=== PATIENT | male | born 1975 | race Caucasian/White ===

== ENCOUNTER 2020-12-11 10:13 | Emergency (ER) | payer MEDICAID, SELFPAY ==
--- NOTE | 2020-12-11 10:15 | ED.GENADUL_ITS ---
Discharge Plan Disposition Patient Disposition: HOME Condition: Fair Discharge Details Clinical Impression: Inguinal hernia, UTI (urinary tract infection), Elevated blood pressure reading Primary Care Provider: None,None ED Provider: Ira Mccarthy Home Meds and New Rx's Prescriptions: New cephalexin [Keflex] 500 mg capsule 500 mg PO QID 5 Days Qty: 20 RF: 0 Continued omeprazole magnesium [Prilosec OTC] 20 mg Tablet,Delayed Release (Dr/Ec) 20 mg PO DAILY RF: 0 Discharge Instructions Instructions: Urinary Tract Infection in Men (ED), Inguinal Hernia (ED) Additional Instructions: Please increase your water intake. You may use Tylenol and/or ibuprofen as needed for discomfort. Your imaging did show a left inguinal hernia but it does not appear to have emergent pathology as we discussed. However, please return if you develop worsening pain, persistent pain, hardening of that area or change in the skin color. I have referred you to general surgery. Please call to schedule appointment, number listed below. Your blood pressure is elevated. Please follow-up with primary care. I have asked care management to help arrange for primary care follow-up. You may continue to check this when at home and discuss these findings with your primary care. As discussed, there is concern that you may have a urinary tract infection as well. Please take the antibiotics as prescribed. Even if symptoms improve, please take the entire course. If you develop fever/chills, increased pain, inability stay hydrated or other new/worsening symptom please seek care urgently once again. Referrals: Laurita Vazquez DO [OSTEOPATHIC DOCTOR] - Discharge Data Discharge Date/Time-TO BE ENTERED AT DEPARTURE: 12/11/20 12:57 Medical Decision Making Patient is a pleasant 45-year-old gentleman presenting today with chief complaint of left-sided flank pain that can radiate into his left testicle. He states the pain began approximate 4 days ago. He states that since then he has been having intermittent left sided pain that can radiate into his pelvis and left testicle. He states that his pain is currently minimal at a 2/10 and describes it as a pressure. Pain can increase to 8/10 and states that this is often when he is exerting himself. States that his appetite has been low, ate toast yesterday. Denies nausea or vomiting. Reports decreased BM, associates with less food intake but does not feel constipated. States that this morning he bagan having some pressure with urination as well. No hematuria. Denies fevers/chills. No previous abdominal surgeries, has not experienced pain like this historically. 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 On exam, patient appears comfortable and nontoxic. He has no CVA tenderness. No abdominal tenderness. Testicular exam is normal with no swelling, mass, erythema or tenderness. Patient's history has me concerned for nephrolithiasis. Also considered intraabdominal source such as diverticulitis. His exam and history is not consistent with testicular torsion. He has no risk factors for STI and no penile discharge or penile pain. Also considered potential hernia, particularly as pain is worse with exertion and heavy lifting. I do not see evidence of incarcerated hernia. Labs reviewed. Potassium is slightly low, otherwise without signifciant abnoramlity. Radiologist contacted the department. He notes left inguinal hernia. No bowel involved. No evidence of incarceration. No hydronephrosis. No nephrolithiasis. UA has returned and is questionable. Patient has moderate bacteria but negative leukocyte esterase and nitrates. Discussed these findings with the patient. He and I discussed risks/benefits of abx for potential UTI. He has started to have some urinary discomfort. Will cover with abx. I advised that he will need to f/u with PCP regarding UTI. He states that he drinks minmal water, this could be contributing to his symptoms today. I have referred him to general surgery to discuss hernia further. Strict return precautions were discussed, all of his questions and concerns were addressed. He is in agreement with this plan. [facility] General Mode of arrival: ambulatory . Date/Time Provider Initiated Documentation: 12/11/20 10:14 . Limitations to Documentation: no limitations . Information obtained by: patient and RN notes reviewed . History of Present Illness 45 year old M presents to the emergency department with the chief comp laint of left flank pain radiating into pelvis and left testicle, described as mild, with intensity rated at 2. Quality is described as aching, and is localized to the back. Patient abdomen and reports radiation to (left testicle). Patient started experiencing this day(s) and it has been intermittent. other things that improve symptom(s), (states he is sleeping well, uninterupted) Other factors that worsen symptoms . Patient notes loss of appetite; denies chest pain, cough, fever/chills, nausea/vomiting and shortness of breath. Patient did receive the following treatments prior to arrival, none Related Data Home Medications Medication Instructions Recorded Confirmed cephalexin [Keflex] 500 mg PO QID 5 Days #20 cap 12/11/20 omeprazole magnesium [Prilosec OTC] 20 mg PO DAILY 12/11/20 12/11/20 Previous Rx's Medication Instructions Recorded cephalexin [Keflex] 500 mg PO QID 5 Days #20 cap 12/11/20 Allergies Allergy/AdvReac Type Severity Reaction Status Date / Time No Known Allergies Allergy Unverified 12/11/20 10:21 Review of Systems Constitutional Constitutional: Reports as per HPI, Denies chills, Denies fatigue, Denies fever(s) and Denies headache(s) ENT Ears, Nose, Mouth, and Throat: Denies headache(s) Cardiovascular Cardiovascular: Reports as per HPI, Denies chest pain and Denies dyspnea Respiratory Respiratory: Reports as per HPI, Denies cough and Denies dyspnea Gastrointestinal Gastrointestinal: Reports as per HPI Genitourinary Genitourinary: Denies difficulty urinating, Reports dysuria (reports pressure with urination this AM), Reports flank pain, Denies scrotal swelling, Denies testicular mass, Reports testicular pain (pain from left side intermittently radiates into left testicle), Denies urinary incontinence and Denies urinary urgency Musculoskeletal Musculoskeletal: Reports as per HPI and Reports back pain Integumentary/Breasts Skin/Breast: Reports as per HPI and Denies rash Neurologic Neurologic: Reports as per HPI and Denies headache(s) Endocrine Endocrine: Denies fatigue [facility] Medical History No active medical problems Surgical History No history of previous surgery Social History Smoking/Tobacco Use Status: Former Tobacco Use Smoking risk assessment performed?: Yes Alcohol Intake: never Drug use: Rarely Substance use type: marijuana Do you feel safe at home: Yes Do you feel safe in your relationship?: Yes Exam Const General: cooperative, healthy appearing, comfortable, no acute distress and well developed Nutritional Appearance: well nourished and overweight Orientation: alert and awake [facility] Head: normal to inspection Mouth: moist mucous membranes Resp Effort & Inspection: normal respiratory effort, able to speak in complete sentences and no respiratory distress Auscultation: clear to auscultation bilaterally, no rales, no rhonchi and no wheezes Cardio Rate: regular rate Rhythm: regular rhythm Heart Sounds: S1 normal and S2 normal GI Inspection: normal to inspection Palpation: soft, no hepatosplenomegaly, not firm, no guarding, no hernias, no masses, no pulsatile masses, nontender and No ascites Percussion: normal to percussion Auscultation: hypoactive bowel sounds Male General Exam: Yes normal external exam, No ecchymosis, No hernia, No inguinal lymphadenopathy, No lesions and No tenderness Penis: normal penis Meatus: meatus normal Scrotum: scrotum normal Testes: normal, no epidiymal tenderness, no testicular mass, no testicular swelling and no testicular tenderness Back/Spine/Pelvis Back: no CVA tenderness Skin General skin exam: no rashes or lesions noted Trauma: no lacerations or abrasions Neuro General: patient alert and patient awake Cognition: normal cognition Speech: speech normal Gait: normal gait Psych Appearance: grossly normal and well kempt Mental Status: mental status grossly normal Speech and Movement: speech and movement normal
[2020-12-11 10:18] VITALS: BP 181/119; PULSE 94; RESP 20; TEMP 36.5; O2SAT 98
[2020-12-11] MEDS: Normal Saline Flush 10 ML SYR IVP (10:37)
[2020-12-11] MEDS: Lactated Ringers 1,000 ML 1000 ML IV (10:42)
--- NOTE | 2020-12-11 10:45 | DI.CT_ITS ---
EXAM: CT RENAL COLIC WO CLINICAL HISTORY: left sided flank pain going into left testicle. TECHNIQUE: Imaging Protocol: Axial computed tomography images with coronal and sagittal reformatted images were created and reviewed CONTRAST MATERIAL: Intravenous: none Oral: None COMPARISON: No exams were available for comparison FINDINGS: VISUALIZED LUNG BASES: No nodules nor pleural effusions evident. ABDOMEN: There is no ascites. LIVER: There are no obvious focal hepatic lesions evident of this noninfused study. GALLBLADDER/BILIARY: No obvious gallbladder pathology. CBD is not dilated. PANCREAS: No evidence of pancreatic mass nor dilatation of the pancreatic duct. SPLEEN: Spleen is not enlarged. No obvious intrasplenic lesions. ADRENALS: There are no significant adrenal masses. KIDNEYS:No cysts evident. No solid renal masses. No calculi nor hydronephrosis. . ABDOMINAL AORTA: Abdominal aorta is not enlarged and there is no kchvfseexbwpzmi-vbfc-[id number] adenopat hy. ABDOMINAL WALL/GI: No evidence of significant anterior abdominal wall hernia. However, there is a fa t containing left inguinal hernia. No bowel obstruction. PELVIS: LYMPH NODES: There is no intrapelvic nor inguinal adenopathy. GI: No evidence of appendicitis.No evidence of sigmoid diverticulitis. URINARY BLADDER: No calculi nor obvious masses evident REPRODUCTIVE: The prostate gland size is upper normal. Some calcification is evident in the central right side of the prostate. OSSEOUS: No significant osseous lesions. IMPRESSION: 1. No evidence of nephrolithiasis nor obstruction of the urinary tracts. Also no evidence of calculu s in the nondistended urinary bladder. 2. No evidence of acute inflammatory process in the abdomen and pelvis. 3. There is a fat containing left inguinal hernia. No bowel obstruction. RADIATION DOSE DELIVERED: 1,273.43mGy.cm Total DLP DATA REPOSITORY: All CT scans at this facility are submitted to the National Radiology Data Registry (NRDR) Dose Index Registry (DIR) with the [employer] (ACR). RADIATION OPTIMIZATION: All CT scans at this facility use at least one of these dose optimization te chniques: automated exposure control; mA and/or kV adjustment per patient size (includes targeted exa ms where dose is matched to clinical indication); or iterative reconstruction.
[2020-12-11 10:46] LABS: Abs Immature Grans 0.02 10^3/uL (0.0-0.06); Absolute Basophil Count 0.04 10^3/uL (0.0-0.2); Absolute Eosinophil Count 0.15 10^3/uL (0.0-0.7); Absolute Lymphocyte Count 1.71 10^3/uL (1.2-3.4); Absolute Monocyte Count 0.71 10^3/uL (0.1-0.8); Absolute Neutrophil Count 5.91 10^3/uL (1.2-6.7); Basophils % 0.5; Eosinophils % 1.8; HCT 49.4 % (40.0-50.0); HGB 16.9 g/dL (13.5-17.5); Immature Grans % 0.2; MCH 28.6 pg (27.0-33.0); MCHC 34.2 % (32.0-36.0); MCV 83.6 fL (80-95); MPV 9.7 fL (8.0-11.0); Monocytes % 8.3; Neutrophils % 69.2; Nucleated RBC 0 %; Platelet Count 321 10^3/uL (130-400); RBC 5.91 10^6/uL (4.36-5.78); RDW 11.9 % (11.8-14.1); RDW-SD 36.1 fL; WBC 8.54 10^3/uL (4.4-10.8)
[2020-12-11 10:59] LABS: ALT 28 U/L (16-63); AST 19 U/L (15-37); Albumin 3.9 g/dL (3.4-5.0); Alkaline Phosphatase 92 U/L (46-116); Anion Gap 7.6 mmol/L (3-11); BUN 14 mg/dL (7-18); Bilirubin, Total 0.6 mg/dL (0.2-1.0); CO2 26.4 mmol/L (21.0-32.0); CREATININE 1.1 mg/dL (0.70-1.30); Calcium 9.2 mg/dL (8.5-10.1); Chloride 104 mmol/L (98-107); Glucose 117 mg/dL (74-106); Potassium 3.3 mmol/L (3.5-5.1); Sodium 138 mmol/L (136-145); Total Protein 8.2 g/dL (6.4-8.2)
[2020-12-11 11:30] LABS: Lipase 150 U/L (73-393)
[2020-12-11 12:01] VITALS: BP 164/88; PULSE 59; RESP 16; TEMP 36.8; O2SAT 100
[2020-12-11 12:13] LABS: Bilirubin Small (Negative); Blood Moderate (Negative); Clarity Sl Cloudy (Clear); Glucose Negative (Negative); Ketones 40 mg/dL (Negative); Leukocyte Esterase Negative (Negative); Nitrite Negative (Negative); Specific Gravity >= 1.030 (1.005-1.025); Urobilinogen 0.2 EU/dL (Up TO 0.2); pH 5.5 (5-8)
[2020-12-11 12:28] LABS: Bacteria Moderate HPF (Negative); Epithelial Cells Rare HPF (Negative); WBC 0-2 HPF (0-5)
[2020-12-11 12:29] LABS: C & S Indicated? Yes; Casts 3-5 Fine Granular LPF (Negative); Mucus Moderate (Negative)
[2020-12-11 12:30] LABS: Crystals Negative HPF (Negative)
--- NOTE | 2020-12-11 12:59 | NUR.NOTE ---
Referral [facility] to [facility]. Copy of referral to Care Management to establish pcp.Nursing Note:
== END 2020-12-11 12:57 | disposition home or self-care (01) ==
PROVIDERS: Emergency Provider Physician Assistant
DX: N39.0 Urinary tract infection, site not specified (principal); K40.90 Unilateral inguinal hernia, without obstruction or gangrene, not specified as recurrent
CPT/HCPCS: 36415; 80053; 83690; 96360; 99284; 74176; 81003; 81015; 85025; 87086; J3490

== ENCOUNTER 2020-12-28 15:09 | Outpatient (REF) | payer MEDICAID, SELFPAY ==
[2020-12-28 10:42] LABS: Bilirubin Negative (Negative); Blood Trace-intact (Negative); Clarity Clear (Clear); Glucose Negative (Negative); Ketones Negative (Negative); Leukocyte Esterase Negative (Negative); Nitrite Negative (Negative); Specific Gravity >= 1.030 (1.005-1.025); Urobilinogen 0.2 EU/dL (Up TO 0.2); pH 5.5 (5-8)
[2020-12-28 10:57] LABS: Bacteria Negative HPF (Negative); C & S Indicated? No; Casts Negative LPF (Negative); Crystals Negative HPF (Negative); Epithelial Cells Rare HPF (Negative); Mucus Moderate (Negative); RBC 0-2 HPF (0-2); WBC 0-2 HPF (0-5)
== END 2020-12-28 15:10 | disposition home or self-care (01) ==
LOC: NCHCN 15:09
PROVIDERS: Visit Provider Surgery
DX: R31.9 Hematuria, unspecified (principal); Z87.891 Personal history of nicotine dependence
CPT/HCPCS: 81003; 81015

== ENCOUNTER 2021-01-07 03:30 | Outpatient (CLI) | payer MEDICAID, SELFPAY ==
[2021-01-07 13:33] LABS: Hemoglobin A1C 5.6 % (<5.7)
[2021-01-07 14:22] LABS: Calculated LDL 122 mg/dL (<100); Cholesterol 199 mg/dL (<200); HDL Cholesterol 62 mg/dL (40-60); TSH (W/Ref FT4) 0.67 uIU/mL (0.36-3.74); Triglyceride 76 mg/dL (<150)
[2021-01-07 22:03] LABS: PSA, Screening 1.7 ng/mL (0.0-2.5)
== END 2021-01-07 03:31 | disposition home or self-care (01) ==
LOC: LBO 03:30
PROVIDERS: PCP Nurse Practitioner Family; Visit Provider Nurse Practitioner Family
DX: Z13.1 Encounter for screening for diabetes mellitus (principal); Z13.220 Encounter for screening for lipoid disorders; Z13.29 Encounter for screening for other suspected endocrine disorder; Z12.5 Encounter for screening for malignant neoplasm of prostate
CPT/HCPCS: 36415; 80061; 84153; 83036; 84443

== ENCOUNTER 2021-01-29 02:01 | Outpatient (CLI) | payer MEDICAID, SELFPAY ==
[2021-01-30 01:19] LABS: COVID-19 RT-PCR UVMMC Result Negative (Negative)
== END 2021-01-29 02:02 | disposition home or self-care (01) ==
PROVIDERS: PCP Nurse Practitioner Family; Visit Provider Surgery
DX: Z20.822 Contact with and (suspected) exposure to COVID-19 (principal); Z01.818 Encounter for other preprocedural examination
CPT/HCPCS: U0003

== ENCOUNTER 2021-02-02 06:19 | Day surgery (SDC) | payer MEDICAID, SELFPAY ==
--- NOTE | 2021-02-01 21:07 | W.PM.HP.N ---
Date of service: 02/02/21 Time of Service: 07:15 Assessment and Plan Assessment and plan (1) Left inguinal hernia: Status: Acute Assessment and plan: Risks of the surgery include but are not limited to: Bleeding/infection/pneumonia/damage to blood vessels or bladder or bowels/blood clots or PE/chronic pain/urinary retention/chronic numbness/reoccurrence/reaction to mesh requiring removal/damage to testicle or sterility/complications of anesthesia. The pt will have a pre-Op PE prior to surgery. Patient does need to get his blood pressure under control prior to any surgical intervention. We discussed the risks of congestive heart failure, IN, stroke, with chronic elevated blood pressure. As well as chronic kidney disease. The procedure will be done with abx and under sterile conditions. Patient understands he will have an implant. The pt requires a ride home from surgery and someone to stay with the pt for 24 hrs after anesthesia. No lifting over 5 pounds for 2 weeks after surgery History of Present Illness Consults Consult date: 02/02/21 - Narrative: : -started on lisinopril. Reviewed UA still has blood and protein in his urine. If not improved in 1 months time- should see nephro still having some mild pain w/ activity. Otherwise no changes in meds or health status. left sie marked. stabel for procedure today Pt. is seen in consultation by JOSE ARMANDO Tobin from ED Symptoms have been started approximately December 06. 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 There is not a specific incident where he started having pain. Patient says actually he has been feeling better since he went to the ER and got diagnosed. Patient denies any pain or difficulty with urination or straining to move his bowls. Pain is in the left groin, he describes it as a discomfort and burning. Lump {IS soft and reducible. reducible. Pt has not had any surgery through this area before. He has not had any surgery or anesthesia in the past. 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 He has never had surgery on the left side. When he does lifting or strenuous activity, It is uncomfortable. Denies problems moving his bowels. He no longer smokers-he only smoked for a few years in his 20s. He has never had anesthesia before. He does not see a doctor. He did not admit to any urinary tract type history other than the pain in the left groin. No hesitancy or decreased stream. No history of chronic pain in the prostatitis or STD's. Family: heart problems- mother but 85, and only started recently. Prostatic health occasions +DM in his brothers. Prostate calcifications are pretty common and do not need to be treated. We do not recommend a hematuria work-up unless somebody has greater than 3-5 red cells per high-powered field. It looks like his initial UA had mucus and casts and epithelial cells and all kinds of crud, so I would write it off more as a contaminant than anything else. -per Urology team Review of Systems All systems reviewed & are unremarkable except as noted in HPI and below PFSH Medical History History of gastroesophageal reflux (GERD) Hypertension Surgical History No history of previous surgery Family History (Updated 01/01/21 @ 12:44 by Arabella Almaraz) Mother No problems noted. Father , age 70 No problems noted. Sister No problems noted. Sister No problems noted. Brother No problems noted. Brother No problems noted. Brother No problems noted. Son No problems noted. Paternal Grandfather , 84 No problems noted. Maternal Grandmother , age 86 No problems noted. Paternal Grandmother , age 33 No problems noted. Social History (Updated 01/01/21 @ 12:39 by Arabella Almaraz) Smoking/Tobacco Use Status: Former Tobacco Use tobacco type: cigarettes Quit Date: 11/13/09 Second Hand Exposure: No Smoking risk assessment performed?: Yes Alcohol Intake: current Alcohol Intake frequency: a few times a week Alcohol type: beer Drug use: Rarely Substance use type: marijuana Details: alcohol:t-3. marijuana: days, hit Caregiver/Support person: No Household members: significant other and family Housing: house Pets and animals: Yes Pets and animals: farm animals Sexually active: Yes Do you think of yourself as: straight/heterosexual Current gender identity: male What is your relationship status?: living with partner How often do you talk on the phone with friends or family?: once per week Do you belong to any clubs or organized social groups?: no Panel score (0-1 are the most socially isolated patients): 1 What type of physical activity do you participate in: none Nohelia/Moravian: No preference Special nohelia needs: No Seatbelt use: sometimes Helmet use: Yes Helmet use: sometimes Drive intox or ride w/intox sales 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 driver helper: No Do you feel safe at home: Yes Do you feel safe in your relationship?: Yes Meds Home Medications and Allergies Allergies Allergy/AdvReac Type Severity Reaction Status Date / Time No Known Allergies Allergy Verified 02/02/21 06:29 Home Medications Medication Instructions Recorded Confirmed Type lisinopril 10 mg tablet 10 mg PO DAILY #90 tab 01/11/21 02/02/21 Rx omeprazole magnesium 20 mg 20 mg PO DAILY #90 tab 01/11/21 02/02/21 Rx tablet,delayed release Exam Resp Effort & Inspection: normal respiratory effort and able to speak in complete sentences Auscultation: clear to auscultation bilaterally Cardio Rate: regular rate Rhythm: regular rhythm GI Palpation: soft Auscultation: normal bowel sounds COVID-19 Screening Have you, or household traveled for leisure in last 14 days?: No Had IN PERSON contact w/suspected or confirmed C-19 person: No
[2021-02-02 06:33] VITALS: BP 141/79; PULSE 65; RESP 14; TEMP 36.1; O2SAT 97
[2021-02-02] MEDS: Acetaminophen 500 MG TAB 1000 MG PO (06:50)
[2021-02-02] MEDS: Gabapentin 300 MG CAP PO (06:50)
[2021-02-02] MEDS: Lactated Ringers 1,000 ML 80 ML IV (07:00)
[2021-02-02 07:06] LABS: Bilirubin Negative (Negative); Blood Small (Negative); Clarity Clear (Clear); Glucose Negative (Negative); Ketones Negative (Negative); Leukocyte Esterase Negative (Negative); Nitrite Negative (Negative); Specific Gravity >= 1.030 (1.005-1.025); Urobilinogen 0.2 EU/dL (Up TO 0.2); pH 5.5 (5-8)
[2021-02-02 07:14] LABS: Bacteria Rare HPF (Negative); C & S Indicated? No; Casts Negative LPF (Negative); Crystals Negative HPF (Negative); Epithelial Cells Rare HPF (Negative); Mucus Trace (Negative); WBC 0-2 HPF (0-5)
[2021-02-02] MEDS: Bupivacaine 0.25% Pres-Free 10 ML VIAL (07:45)
[2021-02-02] MEDS: ceFAZolin 2 GM/50 ML BAG IVPB (07:55)
--- NOTE | 2021-02-02 09:00 | PDOC.DSDIS_ITS ---
Discharge Plan Disposition Patient Disposition: HOME Condition: Good Discharge Details Reason For Visit: left inguinal hernia repair Attending Provider: Laurita Vazquez Primary Care Provider: Toy Wright Home Meds and New Rx's Prescriptions: New ibuprofen 600 mg tablet 600 mg PO Q6H PRNQty: 60 RF: 3 tramadol 50 mg tablet 50 mg PO Q4H PRNQty: 14 RF: 0 Continued omeprazole magnesium [Prilosec OTC] 20 mg tablet,delayed release (DR/EC) 20 mg PO DAILY Qty: 90 RF: 4 lisinopril 10 mg tablet 10 mg PO DAILY Qty: 90 RF: 4 Discharge Instructions Additional Instructions: Dr. Vazquez HERNIA REPAIR ? POSTOPERATIVE INSTRUCTIONS Patients who have this type of surgery can usually be expected to return to work within two weeks and have minimal amounts of discomfort. ? ACTIVITY: The day of surgery should be spent resting. However, you can be up for short periods of time, I.E., going to the bathroom or kitchen. Avoid lifting or straining. On the day following surgery, you can be up and about as desired. ? LIFTING: Restrict your lifting to no more than five (5) pounds for the first week following surgery. For the second week after surgery, don?t lift more than ten pounds. We will decide when you are done with restrictions and when you can return to work, at your follow-up appointment. No sexual activity for two weeks. ? DIET: There are no dietary restrictions following surgery. However, you may want to start with small amounts of liquids to avoid nausea the day of surgery. ? INCISION CARE: You will notice purple skin glue closing the incision. Do not peel this off- it will wear off on its own. After 24 hours you may shower. The dressing may be replaced for comfort, but is not necessary. An ice bag may be applied to the incision for 72 hours following surgery. ? SIGNS OF INFECTION: It is not unusual to have some black and blue discoloration of the skin around the incision, but also scrotum and penis. It will slowly disappear. If you have any increased redness, drainage, fever (above 100 degrees), please contact your doctor for an examination. ? DISCOMFORT: You may expect to have some mild discomfort at the incision sight. If severe pain develops you should contact your doctor for further instructions. ? URINATION: Patients who have surgery occasionally have problems urinating. If you experience problems and are not able to urinate within 6 hours following your surgery, please call your doctor immediately or go to your nearest [facility] Room for evaluation. ? DRIVING: NO driving for three (3) days after surgery, or if you are still taking narcotic pain medication. ? MEDICATIONS: Alternate Tylenol 1000mg by mouth every 8 hours and Ibuprofen 600mg every 6 hours. Make sure you take ibuprofen with food and not on an empty stomach. Take the Tylenol and ibuprofen continuously for the first 72hrs- not just when you have pain. Use the tramadol for breakthrough pain. Use ICE! Twenty minutes on, and then off, continuously for the first 72hours. If you are taking narcotic pain medication, follow the instructions on the label and do not drive. Pain medications can make you very constipated. Make sure you are moving your bowels daily. If not, take Miralax, milk of magnesia or magnesium citrate. Anesthesia makes you very constipated. Take a dose of milk of magnesia the morning after surgery. ? REPORT: Unusual swelling, severe pain, unresolved nausea, signs of infection, or difficulty in urination to your surgeon. Follow up in clinic with Dr. Vazquez in 2 weeks. [phone] Activity:: see above Remove Dressings/Wound Care:: 24 hours Shower/Bathe:: 24 hours Diet:: see above Discharge Orders Discharge Orders: Discharge Order (Routine); Ordered 02/02/21 Ordered By: Laurita Vazquez DS: Diagnosis Discharge Diagnosis (1) Left inguinal hernia: Status: Acute
[2021-02-02 09:08] VITALS: BP 146/76; PULSE 63; RESP 18; TEMP 36.5; O2SAT 97
[2021-02-02 09:13] VITALS: BP 152/82; PULSE 67; RESP 16; TEMP 36.5; O2SAT 98
--- NOTE | 2021-02-02 09:14 | ROE_ITS ---
Date of service: 02/02/21 Time of Service: 09:14 Operative Note Operative Note DATE OF PROCEDURE: 02/02/21 PRE-OP DIAGNOSIS: Left direct inguinal hernia. POST-OP DIAGNOSIS: same PROCEDURE: open left inguinal hernia w/ mesh SURGEON: Sana Hsu HIGH SCHOOL MUSIC TEACHER: Sherry Fong ANESTHESIA TYPE: General:No Airway and Primary Nerve Block Refer to Anesthesia Record ESTIMATED BLOOD LOSS: 5 PATHOLOGY: none sent COMPLICATIONS: None Patient was transported to: same day Patient's condition: stable Procedure Description: INDICATIONS: The pt is here today for surgery regarding symptomatic left inguinal hernia that has failed outpatient conservative medical management, and he is here today for repair. Informed consent was obtained, explaining risks and benefits of the procedure including but not limited to: bleeding, infection, pneumonia, blood clots, chronic pain, chronic numbness, damage to testicle resulting in removal, recurrence of hernia, reaction to Mesh necessitating removal, and other unforetold complications, and complications of anesthesia-which were addressed by the MANAGEMENT ANALYST. The patient is marked in preOp prior to the procedure DESCRIPTION OF PROCEDURE: The pt is then brought to the operative room suite. Anesthesia was administered per the Department of Anesthesia. The patient was prepped and draped in the usual sterile fashion using ChloraPrep scrub solution. Pause for the cause was done. He did receive preop IV antibiotics, and 30 mL of .25% Marcaine w/ epinephrine was used for local anesthetization. A #12 blade was used to make an incision over the external ring. Electrocautery used to provide hemostasis and dissect down to the fascia. The the external Bleich is open with a clean #10 blade. The cord is the nerve is dissected off the edges of the fascia and placed out of by working field. Fascia is dissected off and the cord structures are elevated and grasped with an Allis. The cord is elevated. There is no cord lipomas. Electro-cautery is used to provide hemostasis. A Cecilia drain was placed around the cord to assist in mobilization. The cord was explored. There was no hernia sac on the cord. There is a direct hernia sac is pushing through the floor. Sac is opened up and does contain omentum. The omentum and the sac are excised. Hemostasis returns to the cavity. A medium size mesh plug was then placed into the defect and sewn into transversalis, using 2-0 vicryl. The patch was then placed on the floor, and sewn in using 2-0 Vicryl; onto the pubic tubercle, and the shelving portions of the inguinal ligament, in the standard Agnieszka fashion. The tails of the mesh patch are brought around the cord and sewn together with 2-0 Vicryl, and tacked under the external oblique. The wound was copiously irrigated. There was no bleeding noted. The drain was removed. All structures are returned to normal anatomical position. The nerve is out of the way of the suturing and not caught w/ in any sutures or the mesh. The external oblique is re-approximated using 2-0 vicryl in a running fashion. Deep tissue was approximated with 3-0 Vicryl and skin was approximated with 4-0 Monocryl in a running subcuticular fashion. Skin glue sterile dressings are applied. The patient tolerated the procedure without complications to recovery in stable condition. SANA HSU, DO
[2021-02-02 09:18] VITALS: BP 145/70; PULSE 64; RESP 14; TEMP 36.5; O2SAT 98
[2021-02-02 09:33] VITALS: BP 156/82; PULSE 64; RESP 16; TEMP 36.2; O2SAT 98
[2021-02-02 10:17] VITALS: BP 131/83; PULSE 71; RESP 16; TEMP 36.3; O2SAT 99
== END 2021-02-02 11:03 | disposition home or self-care (01) ==
PROVIDERS: PCP Nurse Practitioner Family; Visit Provider Surgery
PROC: (CPT 49505; principal; 2021-02-02 07:30)
DX: K40.90 Unilateral inguinal hernia, without obstruction or gangrene, not specified as recurrent (principal); I10 Essential (primary) hypertension; Z87.891 Personal history of nicotine dependence; K21.9 Gastro-esophageal reflux disease without esophagitis
CPT/HCPCS: 49505; 76942; 99221; 81003; 81015; C1781; J0690; J1100; J1885; J2001; J2405; J2704; J3010